=== PATIENT | male | born 1980 | race Caucasian/White ===

== ENCOUNTER 2016-10-22 06:03 | Inpatient (IN) ==
[2016-10-22] MEDS ORDERED: IMODIUM PO ONE ×2 (06:37→11:49)
--- NOTE | 2016-10-22 06:42 | PROVIDER DOCUMENTATION ---
HPI-Abdominal Pain/GI Problem - General Chief Complaint: N/V/D Stated Complaint: ABD PAIN/VOMITING Time Seen by Provider: 10/22/16 06:34 Source: patient Allergies/Adverse Reactions: Patient Allergies Allergy/AdvReac Type Severity Reaction Status Date / Time No Known Allergies Allergy Verified 10/22/16 06:18 Home Medications: Home Medication List Medication Instructions Recorded Confirmed Last Taken Type Esomeprazole Magnesium [Nexium] 20 mg PO DAILY 10/22/16 10/22/16 Unknown History - History of Present Illness-ABD Nature of Presenting Problems: Pt started diarrhea yesterday and had a fever at 8PM last night and took a motrin then. He has been having diarrhea every 1/2 hour but vomiting stopped yesterday. he is a 1ppd smoker Review of Systems - Adult - REVIEW OF SYSTEMS - ADULT Constitutional: reports: chills, fever Eyes: denies: discharge, blurred vision Ears, Nose, Mouth & Throat: denies: ear pain, nose pain, throat pain Cardiovascular: denies: chest pain, irregular heart rate Respiratory: reports: cough Gastrointestinal: reports: abdominal pain, diarrhea, nausea, vomiting Genitourinary: denies: dysuria, frequent UTI's Musculoskeletal: denies: joint pain, neck pain Integumentary: reports: no symptoms reported Neurological: reports: no symptoms reported Psychiatric: reports: no symptoms reported Endocrine: denies: goiter, cold intolerance, heat intolerance Hematologic/Lymphatic: denies: low blood count, lymphedema Allergic/Immunologic: reports: no symptoms reported Past History - Adult - PAST MEDICAL HISTORY-ADULT Review of Records: reports: Nursing Assessment Review, Medications Reviewed Gastrointestinal: reports: other (states that he has a hernia) Physical Exam-General - PHYSICAL EXAM-ADULT Initial Vital Signs Reviewed: Yes - CONSTITUTIONAL General Appearance: appears well, alert, no apparent distress - EYES Eyes: PERRL/EOMI, pink conjunctivae - HEAD, EARS, NOSE, MOUTH & THROAT HENMT: normocephalic/atraumatic, moist mucous membranes, normal ENT inspection - NECK Neck: non-tender, full range of motion, supple, normal inspection - RESPIRATORY Respiratory: chest non-tender, lungs clear, normal breath sounds, no pleuratic chest pain, no respiratory distress, no accessory muscle use - CARDIOVASCULAR Cardiovascular: normal peripheral pulses, regular rate, rhythm, no edema, no gallop, no JVD, no murmur - GASTROINTESTINAL (ABDOMEN) Abdominal Exam: normal bowel sounds, non tender, soft, no organomegaly, no pulsatile mass - LYMPHATIC Lymphatic: no adenopathy - MUSCULOSKELETAL Back Exam: normal inspection, no CVA tenderness, no vertebral tenderness Extremity: normal range of motion, non-tender, normal gait, normal inspection, no pedal edema, no calf tenderness, normal capillary refill - SKIN Integumentary: normal color, normal turgor, warm/dry - NEUROLOGIC Neurologic: maintenance clerk II-XII nml as tested, grossly normal, no motor/sensory deficits - PSYCHIATRIC Psych/Mental Status: normal mood/affect, normal thought content, normal thought process, oriented x 3 Progress - PLAN OF CARE/RESULTS Progress/Plan/Lab Results: Vital Signs - 8 hr 10/22/16 06:10 Temperature 99.7 F H Pulse Rate 124 H Respiratory Rate 20 Blood Pressure 141/90 O2 Sat by Pulse Oximetry 95 Orders Category Date Time Status FLAT/UPRIGHT ABD/1 VIEW CHEST [RAD] Stat Exams 10/22/16 06:38 Ordered CBC WITH DIFF [HEME] Stat Lab 10/22/16 06:30 Ordered COMPREHENSIVE METABOLIC PANEL [CHEM] Stat Lab 10/22/16 06:[address] W/POSS RFLX CULT [URINALYSIS] Stat Lab 10/22/16 06:21 Uncollected Loperamide [Imodium] Med 10/22/16 06:37 Once 4 mg PO NOW ONE Result Diagrams: 10/22/16 06:40 10/22/16 06:40 - XRAY 1 XRAY Study: Abdomen Impression: Normal - CT/MRI 1 CT Study: Abdomen, Pelvis Impression: Abnormal (colitis, appy appears normal) Departure - Departure Date of Disposition Decision: 10/22/16 Time of Disposition Decision: 11:52 DIAGNOSIS: Colitis presumed infectious Disposition: ADMITTED INPATIENT 09 Certified Medical Emergency: Emergent Condition: Stable Referrals and Follow-Ups: None,PCP [Primary Care Provider] - - Critical Care Note This patient required my direct & personal management of CC.: No
[2016-10-22] MEDS ORDERED: SODIUM CHLORIDE 0.9% INJ ONE (06:44)
[2016-10-22] MEDS ORDERED: PHENERGAN IV ONE (06:44)
[2016-10-22] MEDS ORDERED: NS 1,000 ML IV ONE ×2 (06:44→09:21)
[2016-10-22 07:07] LABS: BASO% 0.1 % (0.0-0.8); HEMATOCRIT 50.8 % (42.0-52.0); HEMOGLOBIN 17.7 g/dL (14.0-18.0); IMM GRAN# 0.07 X1000 (0.0-0.04); IMM GRAN% 0.4 % (0.0-0.5); LYMPH% 5.3 % (20.5-51.1); MANUAL DIFF NEEDED? YES; MCH 33.5 PG (27-31); MCHC 34.8 g/dL (33-37); MONO# 1.55 X1000 (0.11-0.59); MONO% 8.3 % (1.7-9.3); MPV 10.3 FL (7.4-10.4); NEUT% 85.9 % (42.2-75.2); PLT 170 X1000 (130-400); RBC 5.29 XMIL (4.7-6.1)
[2016-10-22 07:12] LABS: AGAP 12; ALBUMIN 3.7 g/dL (3.5-5.0); ALKALINE PHOSPHATASE 125 U/L (32-122); BUN 6 mg/dL (8-22); CALCIUM 8.8 mg/dL (8.8-10.2); CHLORIDE 98 mmol/L (98-107); COSMO 263; GOT 44 U/L (10-34); GPT 47 U/L (10-44); POTASSIUM 3.4 mmol/L (3.5-5.1); SODIUM 131 mmol/L (136-145); TCO2 21 mmol/L (25-35); TOTAL PROTEIN 6.9 g/dL (6.3-8.3)
[2016-10-22 07:28] LABS: BANDS 6 % (0-1); LYMPHS 7 % (21-51); MONO 2 % (1-9)
--- NOTE | 2016-10-22 08:22 | Diag Imaging Result Doc PS360 ---
EXAM: FLAT/UPRIGHT ABD/1 VIEW CHEST HISTORY: N/V/D/fever-chest congestion TECHNIQUE: Two view abdomen. Single view chest. COMPARISON: None. FINDINGS: Supine and erect views of the abdomen reveal a nonobstructive bowel gas pattern. There is no organomegaly or mass effect. Single view of the chest reveals no infiltrate, effusion, or pneumothorax. There is no free air beneath the hemidiaphragm. IMPRESSION: No acute abnormalities are appreciated. Electronically signed by Brandy Alvarado 10/22/2016 8:20 AM
[2016-10-22 09:31] LABS: URINE CULTURE PL NEEDED? NO
[2016-10-22 09:51] LABS: BILIRUBIN URINE NEGATIVE (NEGATIVE); BLOOD URINE NEGATIVE (NEGATIVE); CLARITY CLEAR (CLEAR); COLOR YELLOW; GLUCOSE URINE NEGATIVE (NEGATIVE); LEUKOCYTES URINE NEGATIVE (NEGATIVE); NITRITE URINE NEGATIVE (NEGATIVE); PROTEIN URINE TRACE mg/dL (NEGATIVE); UROBILINOGEN URINE NORMAL
[2016-10-22 09:52] LABS: URINE CAST NONE SEEN /LPF; URINE CRYSTAL NONE SEEN /HPF; URINE EPITHELIAL CELLS <10 /HPF (<10); URINE RBC <10 /HPF (<10); URINE SOURCE CLEAN CATCH; URINE WBC <10 /HPF (<10)
[2016-10-22] MEDS ORDERED: TYLENOL PO ONE (10:58)
--- NOTE | 2016-10-22 11:29 | Diag Imaging Result Doc PS360 ---
EXAM: CT abdomen/pelvis with IV contrast HISTORY: leukocytosis/ N/V/D, sepsis criteria TECHNIQUE: Images were obtained from the lung bases to pubic symphysis following IV contrast as per standard protocol. Dose reduction technique. Oral contrast not administered as per ED physician request. COMPARISON: None. FINDINGS: There is increased attenuation at the lung bases left greater than right consistent with atelectasis. There is diffuse colonic wall thickening, mucosal enhancement and mild pericolonic soft tissue stranding consistent with colitis which may be related to inflammatory bowel disease or infectious colitis. The appendix is prominent measuring 7.3 mm and demonstrates mucosal enhancement as well. There is no periappendiceal soft tissue stranding. There are prominent mesenteric lymph nodes particularly within the right lower quadrant. There are mildly prominent retroperitoneal lymph nodes. There is no free air or abscess. Small hypodensities both kidneys are noted most consistent with cysts. There is no evidence for bowel obstruction. The remainder of the solid visceral organs are unremarkable. IMPRESSION: 1.Findings consistent with diffuse colitis from rectum to cecum. Findings may indicate ulcerative colitis or infectious colitis. Correlate clinically. 2.Prominent appendix with mucosal enhancement is noted and likely also involved with diffuse colitis. Early secondary appendicitis is not completely excluded. This should be monitored closely clinically. 3.Prominent mesenteric and retroperitoneal lymph nodes. 4.Bibasilar atelectasis left greater than right. Electronically signed by Brandy Alvarado 10/22/2016 11:27 AM
[2016-10-22] MEDS ORDERED: ZOSYN 3.375 GM/NS 3.375 GM/50 ML IVPB IV ONE (11:49)
[2016-10-22] MEDS ORDERED: LEVAQUIN 750 MG/D5W 750 MG/150 ML IVPB IV ONE (11:53)
[2016-10-22] MEDS ORDERED: VANCOMYCIN 1 GM/NS 1 GM/250 ML IVPB IV SCH (12:00)
[2016-10-22] MEDS ORDERED: FLAGYL 500 MG/NS 500 MG/100 ML IVPB IV SCH (12:00)
[2016-10-22] MEDS ORDERED: IMODIUM PO PRN (15:00)
[2016-10-22] MEDS ORDERED: ZOFRAN IV PRN (15:54)
[2016-10-22] MEDS ORDERED: TYLENOL PO PRN (15:54)
[2016-10-22] MEDS ORDERED: POTASSIUM CHLORIDE 40 MEQ in NS 1,000 ML IV SCH (15:55)
[2016-10-22] MEDS ORDERED: TORADOL IV ONE (17:04)
[2016-10-22] MEDS ORDERED: MOTRIN PO PRN (17:28)
[2016-10-22] MEDS: FLAGYL 500 MG/NS 500 MG/100 ML IVPB IV SCH ×2 (18:11→23:54)
[2016-10-22] MEDS: MORPHINE IV PRN (18:12)
[2016-10-22] MEDS: NS + KCL 40 MEQ 1,000 ML IV SCH (18:13)
--- NOTE | 2016-10-22 18:41 | HISTORY AND PHYSICAL ---
CHIEF COMPLAINT: Nausea, vomiting, diarrhea, fever. HISTORY OF PRESENT ILLNESS: This is a 36-year-old gentleman who really has no medical history. He started developing abdominal pain yesterday mostly in his lower quadrants, nausea and vomiting to the point of dry heaves. He has had protracted diarrhea probably greater than 6 bowel movements, liquid, no purulence but blood-tinged reportedly. Denies any previous history of colitis. No NSAID abuse or salicylate abuse in the past. Denies any sick contacts. Denies any contaminated food exposure. Workup in the ER revealed elevated white count of 18,000. He also had pancolitis and he was admitted for treatment. PAST MEDICAL HISTORY: 1. Hepatitis B with possible exposure. We are not sure if it is clear. 2. GERD. 3. Ventral hernia without obstruction. SOCIAL HISTORY: He smokes a pack a day. No ethanol. No IV drugs. PAST SURGICAL HISTORY: Hernia repair. Tonsillectomy. FAMILY HISTORY: Reviewed and noncontributory. Specifically no IBD. He reports an uncle with colon cancer. ALLERGIES: No known drug allergies. MEDICATIONS: I think he just takes Nexium 20 daily. REVIEW OF SYSTEMS: Negative x10 review of systems. PHYSICAL EXAMINATION: VITAL SIGNS: Blood pressure 141/85, heart rate 91, respiratory rate 18, temperature 100 degrees. GENERAL: Well-developed female, in no acute distress. HEAD EXAMINATION: Normocephalic, atraumatic. EYE EXAMINATION: Pupils equal, round, reactive to light. Extraocular movements were intact. EAR/NOSE/THROAT EXAMINATION: Showed moist mucous membranes. NECK EXAMINATION: Supple. CARDIOVASCULAR EXAMINATION: Regular rate and rhythm. No murmurs, gallops, or rubs. PULMONARY EXAMINATION: Bilateral breath sounds, clear to auscultation. GASTROINTESTINAL: Soft, nontender, nondistended. Bowel sounds are positive. EXTREMITIES: No clubbing or cyanosis. LYMPHATICS: No peripheral edema. NEUROLOGICAL EXAMINATION: Nonfocal. ABDOMINAL EXAMINATION: Really benign. There was no rebound or guarding. LABORATORY: 18. Sodium 1 to 3.4. AST and ALT of 44 and 47 [address]A was negative[address] scan showed pancolitis with possible inflammation of his appendix, mesenteric retroperitoneal lymphadenopathy, some atelectasis. ASSESSMENT: This is a 36-year-old male with no history who is presenting with colitis. 1. Colitis: Differential being infectious versus inflammatory versus ischemic versus collagenous. At his age without risk factors, infectious is the most likely component. We will obtain stool studies, empirically start Levaquin and Flagyl. He has received doses in the ER of Zosyn as well. We will follow for clinical improvement. If he is not much improved in the next 24-48 hours, he will need GI consultation for endoscopy. 2. Elevated liver enzymes likely steatohepatitis: We will repeat those levels, repeat hepatitis studies as there has been hepatitis B exposure and follow. 3. Hypokalemia: We will supplement and follow. 4. Dehydration: We will continue treatment and monitor closely. Copy of this cc: Vazquez Samuel MD
[2016-10-22 20:18] LABS: OCCULT BLOOD 1 POSITIVE (NEGATIVE)
[2016-10-23] MEDS: MORPHINE IV PRN (04:59)
[2016-10-23] MEDS: NS + KCL 40 MEQ 1,000 ML IV SCH ×3 (04:59→18:00)
--- NOTE | 2016-10-23 05:26 | CONSULTATION ---
DATE OF CONSULTATION: 10/22/2016 REASON FOR CONSULTATION: Possible appendicitis. HISTORY OF PRESENT ILLNESS: This is a 36-year-old male, who began having some crampy lower abdominal pain yesterday, with associated frequent bouts of diarrhea, as much as every 30 minutes last night, and frequently today. He has also had some low-grade fever. He denies nausea, vomiting, or other similar episodes in the past. No relieving factors. It is exacerbated with direct pressure. PAST MEDICAL HISTORY: 1. Possibly, hepatitis B. 2. Gastroesophageal reflux. 3. Umbilical hernia. PAST SURGICAL HISTORY: 1. Umbilical hernia repair as a child. 2. Tonsillectomy. SOCIAL HISTORY: He smokes a pack a day. Denies alcohol or illicit drug use. FAMILY HISTORY: Reviewed and noncontributory. There is no obvious inflammatory bowel disease. ALLERGIES: No known drug allergies. MEDICATIONS: Nexium. REVIEW OF SYSTEMS: Ten systems reviewed and negative, except as noted above. PHYSICAL EXAMINATION: Vital Signs: He is afebrile. Vital signs are stable. General: He is alert and oriented x4. No acute distress. HEENT: Normocephalic, atraumatic. Extraocular muscles intact. Pupils equal, round, reactive to light. Sclerae anicteric. Moist mucous membranes. Hearing grossly normal. Neck: Supple. No thyromegaly. Cardiovascular: Regular rate and rhythm. Respiratory: Bilateral breath sounds. No work of breathing. Gastrointestinal: Soft, nondistended. No organomegaly or mass. He does have a supraumbilical hernia. It appears to be reducible. He has mild right lower quadrant tenderness. No rebound or guarding. Extremities: No clubbing, cyanosis, or edema. Skin: Warm and dry. No rash. Musculoskeletal: Moves all extremities equally and well. LABORATORY STUDIES: White blood cell count 18,000. Electrolytes reviewed and unremarkable. IMAGING STUDIES: A CT scan was reviewed, which shows pancolitis and a mildly dilated appendix, without surrounding periappendiceal inflammation. There is a small amount of lymphadenopathy in the mesentery. ASSESSMENT AND PLAN: A 36-year-old male with pancolitis. The etiology is unclear, possibly infectious or inflammatory bowel disease. I do not think he has acute appendicitis, and would recommend continuing your treatment with Levaquin and Flagyl, fluids, and observation. cc: Orion Deluna MD
[2016-10-23] MEDS: FLAGYL 500 MG/NS 500 MG/100 ML IVPB IV SCH (06:12)
[2016-10-23 06:37] LABS: HEMATOCRIT 47.1 % (42.0-52.0); HEMOGLOBIN 16.2 g/dL (14.0-18.0); MCH 33.4 PG (27-31); MCHC 34.4 g/dL (33-37); MCV 97.1 FL (81-99); MPV 10.8 FL (7.4-10.4); RBC 4.85 XMIL (4.7-6.1)
[2016-10-23 06:55] LABS: AGAP 10; BUN 6 mg/dL (8-22); CALCIUM 8.3 mg/dL (8.8-10.2); CHLORIDE 103 mmol/L (98-107); COSMO 268; MAGNESIUM 1.6 mg/dL (1.5-2.7); POTASSIUM 3.7 mmol/L (3.5-5.1); SODIUM 135 mmol/L (136-145); TCO2 22 mmol/L (25-35)
[2016-10-23 07:06] LABS: ALBUMIN 2.8 g/dL (3.5-5.0); ALKALINE PHOSPHATASE 90 U/L (32-122); DIRECT BILIRUBIN < 0.20 mg/dL (0.00-0.20); GOT 29 U/L (10-34); GPT 37 U/L (10-44)
[2016-10-23] MEDS: NICODERM PATCH TD SCH (08:55)
[2016-10-23] MEDS ORDERED: FLAGYL 500 MG/NS 500 MG/100 ML IVPB IV SCH (09:58)
[2016-10-23] MEDS ORDERED: LEVAQUIN 750 MG/D5W 750 MG/150 ML IVPB IV SCH ×3 (12:00)
[2016-10-23] MEDS: FLAGYL PO SCH ×2 (12:03→17:59)
[2016-10-23] MEDS: LEVAQUIN PO SCH (12:04)
--- NOTE | 2016-10-23 13:15 | PROGRESS NOTE ---
DATE: 10/23/2016 SUBJECTIVE: Patient notes he is feeling tremendously better today. Denies any cough, congestion. Denies any GI issues other than slight abdominal pain. Denies any hematochezia, melena. States he is tolerating food much better. Denies dysuria, frequency, urgency. PHYSICAL: Temp 99 degrees, pulse is 71, respiratory 19, BP 137/84, sat 94% on room air.General: Patient is awake, alert, currently in no respiratory distress. Pleasant to talk with. Neck: Supple. CV: Regular rate. Chest: Relatively clear. Abdomen: Soft. Extremities: Moves all extremities. Neurologic: No focal changes. Skin: Warm and dry. No rashes. ASSESSMENT: 1. Colitis. Certainly appears to be infectious as Levaquin and Flagyl is improving his abdominal exam tremendously. Overall he notes he is feeling much better. 2. Elevated liver enzymes. Likely secondary to chronic alcoholic hepatitis as the patient notes that he drinks a 12 pack 3-4 times a week. 3. Chronic alcoholism. Discussed with patient the perils of alcoholism to include hepatitis and cirrhosis. 4. Hypokalemia resolved. 5. Leukocytosis improved. 6. Moderate protein calorie malnutrition. Stable. 7. Heme-positive stools. PLAN: We will advance patient's diet from full liquid to GI soft. His symptoms have completely resolved. This certainly appears to be more infectious related. We will change him to Levaquin and Flagyl. Discussed with patient the perils of drinking, certainly the perils of drinking while he is on Flagyl. Patient notes that he understands and will not start alcohol when he is discharge. Hopefully, he can be discharged in the next 1-2 days. cc: Kashif Payton MD
[2016-10-24] MEDS: NS + KCL 40 MEQ 1,000 ML IV SCH ×2 (02:28→10:09)
[2016-10-24 07:29] VITALS: BP 111/61
[2016-10-24] MEDS: FLAGYL PO SCH ×2 (08:04→12:41)
[2016-10-24] MEDS: NICODERM PATCH TD SCH (08:04)
[2016-10-24] MEDS: LEVAQUIN PO SCH (12:41)
--- NOTE | 2016-10-24 14:33 | PROGRESS NOTE ---
DATE: 10/24/2016 SUBJECTIVE: Feels well. He having more normal bowel movements. No blood. He is tolerating a soft diet. No abdominal pain. OBJECTIVE: Vital signs: No fevers. No tachycardia. Blood pressure 111/61, O2 saturation 98% on room air. General: He is alert, in no acute distress. He is getting dressed to go home. Abdomen: Soft, nontender, nondistended. LABORATORY: WBC almost normal hematocrit 47, creatinine 0.8, glucose is 108. Stool studies showed no enteric pathogen. There were a few leukocytes in his stool. ASSESSMENT/PLAN: A 36-year-old male with pancolitis of unclear etiology. He is improved rapidly and his symptoms have resolved. He has been transitioned to oral antibiotics. Tolerating a soft diet. Dr. Payton with the hospitalist plans to let him go home. I think this is reasonable. He can see Dr. Deluna back in his office. I have recommended a colonoscopy in about 4-6 weeks after this episode to rule out any inflammatory etiology to this. cc: Ruiz Alvarez MD MTDD
--- NOTE | 2016-10-25 03:44 | DISCHARGE SUMMARY ---
ADMISSION DATE: 10/22/2016 DISCHARGE DATE: 10/24/2016 DISCHARGE DIAGNOSES: 1. Colitis, presumably infectious. 2. Hypokalemia. 3. Dehydration. C HOSPITAL COURSE: Clinically, the patient presented with abdominal pain, nausea, vomiting, diarrhea, a little bit of blood tinge to his diarrhea. His initial white count was normal but he had a temperature of a 101.9 degrees. Actually, initial white count was 18,000. CT scan just showed pancolitis. Stool studies, all we got was the Hemoccult and C. difficile that was back prior to discharge. His lactoferrin, stool culture, etcetera are negative. Clinically, he improved within 24 hours of antibiotics. He has not had any fever since the . His white count had decreased to 11,000. His hemoglobin and hematocrit were 16 and 47, even after hydration. His Hemoccult test was positive but he had no further gross bleeding and he was felt stable for discharge on the . DISCHARGE MEDICATIONS: Cipro 500 b.i.d. for 7 days, Nexium 20 daily, Culturelle 1 b.i.d., and Flagyl 500 t.i.d. for another 7 days. DISCHARGE CONDITION: Stable. DISCHARGE INSTRUCTIONS: I will refer him [facility] and also follow with Dr. Francis since he did have heme-positive stools and evidence of colitis. He was told to return for worsening abdominal pain, nausea, vomiting, fever. This is a service admission, 32 minute discharge. cc: Vazquez Samuel MD
[2016-10-26 10:00] LABS: HEPATITIS PROFILE ACUTE SEE COMMENTS
== END 2016-10-24 13:43 | disposition home or self-care (01) ==
LOC: P.ED 06:03 → P.MEDSURG 13:14
PROVIDERS: ATTEND Internal Medicine